=== PATIENT | male | born 1950 | race American Indian/Alaskan Native ===

== ENCOUNTER 2017-06-19 15:35 | Emergency (ER) | payer MEDICARE ==
--- NOTE | 2017-06-19 16:09 | Emergency Department Report ---
HPI - General Chief Complaint: Arrhythmia/Palpitations Time Seen by Provider: 06/19/17 15:40 - HPI HPI: This is a 67 year-old male presents to the emergency department via EMS with complaint of some dizziness and nearly passing out. He says that he felt like he was going to pass out and that if he got out of his car he would fall down. He attempted to get out of his car and felt very weak so he sat back in his car and called EMS. Allegedly the patient was found to have some bradycardia and was given some atropine and he was given some Zofran for nausea. Currently the patient says that his dizziness only occurs if he is moving his head around. He denies any room spinning/vertigo-like sensation. He denies any headache, slurred speech, vision change, chest pain, shortness of breath. He has a past medical history of hypertension, enlarged prostate and prostate cancer that is in remission. He is on Altace, Norvasc and Cardura for his blood pressure. His primary care physician is Dr. Lynn. ED Past Medical Hx - Past Medical History Previous Medical History?: Yes Hx Hypertension: Yes Hx of Cancer: Yes (prostate) - Surgical History Past Surgical History?: No - Social History Smoking Status: Never Smoker Substance Use Type: None ED Review of Systems ROS: Stated complaint: SYNCOPAL EPISODE Other details as noted in HPI Comment: All other systems reviewed and negative Constitutional: weakness. denies: fever Eyes: denies: eye pain, eye discharge, vision change ENT: denies: ear pain, throat pain Respiratory: denies: cough, shortness of breath, wheezing Cardiovascular: denies: chest pain, palpitations Gastrointestinal: denies: abdominal pain, nausea, diarrhea Genitourinary: denies: urgency, dysuria Musculoskeletal: denies: back pain, joint swelling, arthralgia Skin: denies: rash, lesions Neurological: other (dizziness). denies: numbness, paresthesias Physical Exam - Physical Exam Physical Exam: GENERAL: The patient is well-developed well-nourished. HENT: Normocephalic. Atraumatic. Patient has moist mucous membranes. No nystagmus. EYES: Extraocular motions are intact. Pupils equal reactive to light bilaterally. NECK: Supple. Trachea is midline. CHEST/LUNGS: Clear to auscultation. There is no respiratory distress noted. HEART/CARDIOVASCULAR: Regular. There is no tachycardia. There is no gallop rub or murmur. ABDOMEN: Abdomen is soft, nontender. Patient has normal bowel sounds. There is no abdominal distention. SKIN: Skin is warm and dry. NEURO: The patient is awake, alert, and oriented. The patient is cooperative. The patient has no focal neurologic deficits. The patient has normal speech. Cranial nerves II through XII grossly intact. No pronator drift. No dysmetria. MUSCULOSKELETAL: There is no tenderness or deformity. There is no limitation range of motion. There is no evidence of acute injury. Muscle strength 5 out of 5 upper and lower extremities including EHL bilaterally. ED Medical Decision Making - Lab Data Result diagrams: 06/19/17 15:59 06/19/17 15:59 - EKG Data -: EKG Interpreted by De EKG shows normal: sinus rhythm, axis, intervals, QRS complexes, ST-T waves Rate: normal - EKG Data When compared to previous EKG there are: previous EKG unavailable Interpretation: normal EKG - Medical Decision Making 67-year-old male presents after having some dizziness and weakness causing near syncope. By the time the patient is in the emergency department he only feels this dizziness when he is moving around, especially his head. EKG showed some borderline left axis deviation but otherwise no ST elevation [place], ischemia or dysrhythmia. He does not have any focal, motor or sensory deficits and his cranial nerves are intact. He was having some nausea without vomiting so he was given some Zofran. He was given some mild IV fluid resuscitation. Labs are unremarkable including normal thyroid function, negative troponins 2 and no electrolyte abnormalities. There are no signs of infection. The patient was reevaluated multiple times over multiple hours since he is feeling much better. He was able to display the ability to ambulate throughout the emergency department without any return of his dizziness or weakness and is currently asymptomatic. Vital signs stable including being afebrile. The patient did not have any headache, vision change or any neurological deficits. He did not actually have a syncopal episode. For these reasons I did not feel that the patient required CT imaging of the head at this time. However if his symptoms increase or return he may need to return to the emergency department for some type of imaging of the head/brain. The report from EMS was that the patient had symptomatically bradycardia and required atropine. The patient has not had any significant bradycardia while in the emergency department. It would make sense that the patient had significant bradycardia that he might have the symptoms of near syncope and dizziness. For this reason the patient will also be given a referral for cardiology. - Differential Diagnosis orthostatic hypotension, vasovagal, TIA, vertigo Critical Care Time: No Critical care attestation.: If time is entered above; I have spent that time in minutes in the direct care of this critically ill patient, excluding procedure time. ED Disposition Clinical Impression: Dizziness, Near syncope, Bradycardia Disposition: DC-01 TO HOME OR SELFCARE Is pt being admited?: No Condition: Stable Instructions: Near Syncope (ED), Lightheadedness (ED), Dizziness (ED), Bradycardia (ED) Additional Instructions: Please follow-up with your primary care physician in the next few days without fail. Return to the emergency department immediately with any worsening of your symptoms, chest pain, headache, vision change, any neurological deficits or any acute distress. I have given a referral for a local seat mender, Dr. Maxwell, to follow up regarding your suspected bradycardia. Referrals: OSORIO BOLAND MD [Referring] - SOFIA NGUYEN MD [Staff Physician] - BRETT Time of Disposition: 19:27
[2017-06-19 16:37] LABS: Anion Gap 19 mmol/L; BUN/Creatinine Ratio 9; Blood Urea Nitrogen 7 mg/dL (9-20); Calcium 9.3 mg/dL (8.4-10.2); Carbon Dioxide 22 mmol/L (22-30); Chloride 99.1 mmol/L (98-107); Glucose 106 mg/dL (75-100); Potassium 3.9 mmol/L (3.6-5.0); Sodium 136 mmol/L (137-145)
[2017-06-19 16:41] LABS: Alanine Aminotransferase 33 units/L (7-56); Albumin 4.6 g/dL (3.9-5); Albumin/Globulin Ratio 1.7 %; Alkaline Phosphatase 44 units/L (35-129); Total Protein 7.3 g/dL (6.3-8.2)
[2017-06-19 16:42] LABS: Basophils % (Auto) 0.9 % (0.0-1.8); Eosinophils % (Auto) 0.7 % (0.0-4.3); Hemoglobin 14.2 gm/dl (11.8-15.2); Mean Corpuscular HGB Conc 32 % (32-34); Mean Corpuscular Hemoglobin 26 pg (28-32); Mean Corpuscular Volume 82 fl (84-94); Platelet Count 166 K/mm3 (140-440); Red Blood Count 5.39 M/mm3 (3.65-5.03); Red Cell Distribution Width 14.8 % (13.2-15.2); White Blood Count 9.3 K/mm3 (4.5-11.0)
[2017-06-19 16:45] LABS: Bilirubin,Direct < 0.2 mg/dL (0-0.2); Bilirubin,Indirect 0.2 mg/dL
[2017-06-19] MEDS ORDERED: NACL 0.9% 1000 ML 1,000 ML IV ONE (16:56)
[2017-06-19] MEDS ORDERED: ZOFRAN IV ONE (16:56)
[2017-06-19 17:58] LABS: Bilirubin,Urine NEG (Negative); Blood,Urine SM (Negative); Ketones,Urine NEG (Negative); Leukocyte Esterase,Urine NEG (Negative); Nitrite,Urine NEG (Negative); Protein,Urine <15 mg/dL mg/dL (Negative); Urobilinogen,Urine < 2.0 mg/dL (<2.0)
[2017-06-19 19:27] VITALS: BP 139/85
== END 2017-06-19 20:00 | disposition home or self-care (01) ==
LOC: ED 15:35
DX: R42 Dizziness and giddiness (principal); R00.1 Bradycardia, unspecified; I10 Essential (primary) hypertension
CPT/HCPCS: 36415; 80048; 80074; 81001; 84443; 84484; 85025; 93005; 93010; 96361; 96374; 99284; J2405; J7030